=== PATIENT | male | born 1960 | race Caucasian/White ===

== ENCOUNTER → 2018-03-13 | Outpatient (CLI) | payer BC, OTHER ==
[~2018-03-13] MED LIST: IOHEXOL 350 MG/ML 100 ML (OMNIPAQUE 350) VIAL IV ONE; NS 250 ML (IVPB) BAG IV ONE
--- NOTE | 2018-03-13 13:22 | Diagnostic Imaging Report ---
PROCEDURE: CT abdomen and pelvis with contrast. TECHNIQUE: Multiple contiguous axial images were obtained through the abdomen and pelvis after administration of intravenous contrast. INDICATION: Left-sided pain. COMPARISON: There are no prior studies available for comparison. FINDINGS: There may be one or two diverticula in the sigmoid colon. There is no evidence for acute diverticulitis, however. The visualized colon is otherwise unremarkable. The appendix was identified and is not abnormally thickened. The urinary bladder is not well distended and consequently difficult to assess. There is no obvious bladder abnormality evident. The prostate gland is not enlarged. There is no pelvic mass or free fluid collection noted. The liver, spleen, pancreas, gallbladder, adrenals, kidneys, aorta, and inferior vena cava are unremarkable for an acute abnormality. The stomach is not fully distended and consequently difficult to assess. The lung bases are clear. The bone windows show no sign of a fracture. In particular, there is no evidence for a rib fracture on the left. IMPRESSION: 1. There is no evidence for an acute abnormality of the abdomen or pelvis. 2. There are a few diverticula in the sigmoid colon, but there is no sign of acute diverticulitis. 3. The bone windows show no evidence for a fracture. In particular, there is no sign of a fracture involving the left ribs. Dictated by: Dictated on workstation # [id number]
== END ==
LOC: RAD 09:44
PROVIDERS: ATTEND Family Medicine
DX: K57.30 Diverticulosis of large intestine without perforation or abscess without bleeding (principal)
CPT/HCPCS: 74177

== ENCOUNTER 2022-07-12 08:24 | Emergency (ER) | payer OTHER ==
[~2022-07-12] VITALS: Ht 182 cm; Wt 74.0 kg
[2022-07-12] MEDS ORDERED: KETOROLAC 30 MG/ML VIAL IVP STA (09:26)
[2022-07-12] MEDS ORDERED: LACTATED RINGERS 1,000 ML IV ONE (09:30)
[2022-07-12 09:39] LABS: ALBUMIN 4.3 GM/DL (3.2-4.5); POTASSIUM 3.6 MMOL/L (3.6-5.0)
[2022-07-12 09:41] LABS: TOTAL PROTEIN 7.6 GM/DL (6.4-8.2)
[2022-07-12 09:43] LABS: BILIRUBIN,TOTAL 0.5 MG/DL (0.1-1.0)
[2022-07-12 09:44] LABS: HEMOGLOBIN 16.1 g/dL (13.3-17.7); MEAN PLATELET VOLUME 9.7 fL (9.0-12.2)
--- NOTE | 2022-07-12 09:44 | ED Abdominal Pain ---
General Chief Complaint: Abdominal/GI Problems Stated Complaint: LOWER RT SIDE ABD PAIN Nursing Triage Note: RIGHT LOWER ABD PAIN OFF AND ON FOR X2 WEEKS. TODAY STARTED HAVING PAIN RIGHT LOWER BACK. Source of Information: Patient History of Present Illness Date Seen by Provider: Jul 12, 2022 Time Seen by Provider: 09:25 Initial Comments PT ARRIVES VIA POV FROM HOME C/O RLQ PAIN RADIATING TO RIGHT FLANK AREA "FOR A COUPLE OF WEEKS OR LONGER" STATES PAIN IS CONSTANT, YET HE DOES NOT HAVE PAIN NOW TOOK 600 MG OF IBUPROFEN BETWEEN MIDNIGHT AND 0400 AND IT HELPS NOTHING WORSENS PAIN NO NAUSEA/VOMITING/DIARRHEA/CONSTIPATION--HAD A NORMAL LOOSE STOOL THIS AM NO URINARY SYMPTOMS AND VOIDING A NORMAL AMOUNT, AND URINE IS NORMAL COLOR NO FEVER AT ANY TIME LAST ATE AT 1800 LAST NIGHT, NO CHANGE IN APPETITE NO HISTORY OF SIMILAR NO PRIOR ABDOMINAL SURGERIES--NO SURGERIES OF ANY KIND PT SMOKES 1 PPD, DRINKS BEER DAILY, DENIES ETOH USE. 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 PCP: NONE Allergies and Home Medications Allergies Coded Allergies: No Known Drug Allergies (Unverified , 07/12/22) Patient Home Medication List Ketorolac Tromethamine (Ketorolac Tromethamine) 10 Mg Tablet, 10 MG PO Q6H Prescribed by: ALO MANE on 07/12/22 1114 Ondansetron (Ondansetron Odt) 4 Mg Tab.rapdis, 4 MG PO Q4H Prescribed by: ALO MANE on 07/12/22 1114 Review of Systems Review of Systems Constitutional: no symptoms reported Respiratory: No Symptoms Reported Cardiovascular: No Symptoms Reported Gastrointestinal: See HPI, Abdominal Pain; Denies Constipated, Denies Diarrhea, Denies Nausea, Denies Poor Appetite, Denies Poor Fluid Intake, Denies Rectal Bleeding, Denies Vomiting Genitourinary: No Symptoms Reported Musculoskeletal: see HPI, back pain Skin: no symptoms reported Psychiatric/Neurological: No Symptoms Reported Endocrine: No Symptoms Reported Hematologic/Lymphatic: No Symptoms Reported Past Ihhfnli-Rvcyxe-Yhinnf Hx Patient Social History Tobacco Use?: Yes Smoking Status: Current Everyday Smoker Substance use?: No Alcohol Use?: Yes Alcohol type: Beer Alcohol Frequency: Daily Past Medical History Surgeries: No Respiratory: No Cardiac: Yes (REFUSED TO TAKE MEDICATION) Hypertension Neurological: No Genitourinary: No Gastrointestinal: No Musculoskeletal: No Endocrine: No HEENT: No Cancer: No Psychosocial: No Integumentary: No Blood Disorders: No Physical Exam Vital Signs Vital Signs - First Documented 07/12/22 08:37 Temp 36.8 Pulse 79 Resp 16 B/P (MAP) 201/95 (130) Pulse Ox 96 O2 Delivery Room Air Capillary Refill : Less Than 3 Seconds Height/Weight/BMI Height: '" Weight: lbs. oz. kg; 22.00 BMI Method: Progress/Results/Core Measures Results/Orders Lab Results Laboratory Tests Test 07/12/22 09:14 07/12/22 09:19 07/12/22 09:28 Range/Units Serum Alcohol < 10 <10 MG/DL White Blood Count 3.8 L 4.3-11.0 10^3/uL Red Blood Count 4.90 4.30-5.52 10^6/uL Hemoglobin 16.1 13.3-17.7 g/dL Hematocrit 46 40-54 % Mean Corpuscular Volume 94 80-99 fL Mean Corpuscular Hemoglobin 33 25-34 pg Mean Corpuscular Hemoglobin Concent 35 32-36 g/dL Red Cell Distribution Width 12.4 10.0-14.5 % Platelet Count 128 L 130-400 10^3/uL Mean Platelet Volume 9.7 9.0-12.2 fL Immature Granulocyte % (Auto) 1 % Neutrophils (%) (Auto) 70 42-75 % Lymphocytes (%) (Auto) 12 12-44 % Monocytes (%) (Auto) 16 H 0-12 % Eosinophils (%) (Auto) 1 0-10 % Basophils (%) (Auto) 1 0-10 % Neutrophils # (Auto) 2.7 1.8-7.8 10^3/uL Lymphocytes # (Auto) 0.4 L 1.0-4.0 10^3/uL Monocytes # (Auto) 0.6 0.0-1.0 10^3/uL Eosinophils # (Auto) 0.0 0.0-0.3 10^3/uL Basophils # (Auto) 0.0 0.0-0.1 10^3/uL Immature Granulocyte # (Auto) 0.0 0.0-0.1 10^3/uL Percent Immature Platelet Fraction 3.2 0.0-7.6 % Sodium Level 135 135-145 MMOL/L Potassium Level 3.6 3.6-5.0 MMOL/L Chloride Level 100 98-107 MMOL/L Carbon Dioxide Level 25 21-32 MMOL/L Anion Gap 10 5-14 MMOL/L Blood Urea Nitrogen 4 L 7-18 MG/DL Creatinine 0.85 0.60-1.30 MG/DL Estimat Glomerular Filtration Rate 99 BUN/Creatinine Ratio 5 Glucose Level 110 H 70-105 MG/DL Calcium Level 9.0 8.5-10.1 MG/DL Corrected Calcium 8.8 8.5-10.1 MG/DL Total Bilirubin 0.5 0.1-1.0 MG/DL Aspartate Amino Transf (AST/SGOT) 17 5-34 U/L Alanine Aminotransferase (ALT/SGPT) 16 0-55 U/L Alkaline Phosphatase 71 40-136 U/L Total Protein 7.6 6.4-8.2 GM/DL Albumin 4.3 3.2-4.5 GM/DL Amylase Level 38 25-125 U/L Lipase 13 8-78 U/L Urine Color YELLOW Urine Clarity CLEAR Urine pH 6.0 5-9 Urine Specific [place] 1.020 1.016-1.022 Urine Protein NEGATIVE NEGATIVE Urine Glucose (UA) NEGATIVE NEGATIVE Urine Ketones NEGATIVE NEGATIVE Urine Nitrite NEGATIVE NEGATIVE Urine Bilirubin NEGATIVE NEGATIVE Urine Urobilinogen 0.2 < = 1.0 MG/DL Urine Leukocyte Esterase NEGATIVE NEGATIVE Urine RBC (Auto) TRACE-L H NEGATIVE Urine RBC RARE /HPF Urine WBC 0-2 /HPF Urine Crystals NONE /LPF Urine Bacteria NEGATIVE /HPF Urine Casts NONE /LPF Urine Mucus NEGATIVE /LPF Urine Culture Indicated NO My Orders Orders - ALO MANE DO Ed Iv/Invasive Line Start (07/12/22 09:26) Monitor-Rhythm Ecg Trace Only (07/12/22:) Amylase (07/12/22:) Cbc With Automated Diff (07/12/22:) Comprehensive Metabolic Panel (07/12/22:) Lipase (07/12/22:) Ua Culture If Indicated (07/12/22:) Ed Iv/Invasive Line Start (2/14/23 09:26) Lactated Ringers (Lr 1000 Ml Iv Solution (07/12/22 09:30) Ketorolac Injection (Toradol Injection) (07/12/22 09:26) Alcohol (07/12/22 09:44) Ct Abd/Pelvis Wo(Kidney Stone) (07/12/22 10:11) Abdomen/Kub 1view (07/12/22 10:11) Medications Given in ED Current Medications Medications Dose Ordered Sig/Dilcia Route Start Time Stop Time Status Last Admin Dose Admin Lactated Ringer's 1,000 ml @ 0 mls/hr Q0M ONCE IV 07/12/22 09:30 07/12/22 09:31 DC 07/12/22 09:36 1,000 MLS/HR Vital Signs/I&O 07/12/22 08:37 Temp 36.8 Pulse 79 Resp 16 B/P (MAP) 201/95 (130) Pulse Ox 96 O2 Delivery Room Air Blood Pressure Mean: [address] ABDOMEN/PELVIS--PER RADIOLOGIST REPORT AT 1050 FINDINGS: The lung bases are clear. No focal liver mass is identified. There appear to be small stones within the gallbladder. No biliary ductal dilatation is seen. The pancreas and spleen are unremarkable. No adrenal mass is detected. There is a punctate nonobstructing calculus in the right kidney. No left-sided renal calculi are seen. No definite ureteral calculus or evidence of hydronephrosis is detected. There are no bladder calculi detected. The aorta is heavily calcified but nonaneurysmal. The small and large bowel loops are of normal caliber. There is no obstruction. The appendix is unremarkable. There is no ascites. The prostate is unremarkable. There are fat-containing inguinal hernias bilaterally. The bony structures are nonacute. IMPRESSION: 1. Cholelithiasis. 2. Punctate nonobstructing right renal calculus. No ureteral calculus or hydronephrosis is detected. 3. Fat-containing bilateral inguinal hernias. Reviewed: Reviewed by Me Departure Impression Primary Impression: Cholelithiasis Additional Impression: HTN (hypertension) Disposition: HOME, SELF-CARE Condition: Stable Departure-Patient Inst. Decision time for Depature: 11:10 Referrals: BLAINE LUCAS,LOCAL PHYSICIAN (PCP) Primary Care Physician Patient Instructions: Gallstones, Gallbladder Diet, High Blood Pressure (DC), DASH Diet Add. Discharge Instructions: HOME, REST CLEAR LIQUIDS--WATER, BROTH, JELLO, GATORADE BLAND DIET--NO HIGH FAT OR ACIDIC FOODS OR DRINKS FOLLOW UP WITH DR. LUCAS OR SURGEON OF CHOICE FOR FURTHER EVALUATION OF GALLBLADDER FOLLOW UP WITH TO [facility] PRIMARY CARE FOR FURTHER EVALUATION OF YOUR BLOOD PRESSURE All discharge instructions reviewed with patient and/or family. Voiced understanding. Scripts Ondansetron (Ondansetron Odt) 4 Mg Tab.rapdis 4 MG PO Q4H for Nausea/Vomiting, #10 TAB Prov: ALO MANE DO 07/12/22 Ketorolac Tromethamine (Ketorolac Tromethamine) 10 Mg Tablet 10 MG PO Q6H for Pain, #15 TAB Prov: ALO MANE DO 07/12/22 Work/School Note: Local [employer] Listing ALO MANE DO Jul 12, 2022 09:44
[2022-07-12 09:45] LABS: BILIRUBIN,URINE NEGATIVE (NEGATIVE); CLARITY,URINE CLEAR; COLOR,URINE YELLOW; GLUCOSE, URINE (UA) NEGATIVE (NEGATIVE); KETONES,URINE NEGATIVE (NEGATIVE); LEUKOCYTE ESTERASE ,URINE NEGATIVE (NEGATIVE); NITRITE,URINE NEGATIVE (NEGATIVE); PROTEIN,URINE NEGATIVE (NEGATIVE)
[2022-07-12 09:45] LABS: CREATININE SERUM 0.85 MG/DL (0.60-1.30)
[2022-07-12 09:46] LABS: BASOPHILS % (AUTO) 1 % (0-10); EOSINOPHILS % (AUTO) 1 % (0-10); HEMATOCRIT 46 % (40-54); LYMPHOCYTES # (AUTO) 0.4 10^3/uL (1.0-4.0); LYMPHOCYTES % (AUTO) 12 % (12-44); MEAN CORPUSCULAR HEMOGLOBIN 33 pg (25-34); MEAN CORPUSCULAR HGB CONC 35 g/dL (32-36); MEAN CORPUSCULAR VOLUME 94 fL (80-99); MONOCYTES # (AUTO) 0.6 10^3/uL (0.0-1.0); MONOCYTES % (AUTO) 16 % (0-12); NEUTROPHILS # (AUTO) 2.7 10^3/uL (1.8-7.8); NEUTROPHILS % (AUTO) 70 % (42-75); PLATELET COUNT 128 10^3/uL (130-400); WHITE BLOOD COUNT 3.8 10^3/uL (4.3-11.0)
[2022-07-12 10:00] LABS: BACTERIA,URINE NEGATIVE /HPF; RBC,URINE RARE /HPF; WBC,URINE 0-2 /HPF
--- NOTE | 2022-07-12 10:44 | Diagnostic Imaging Report ---
PROCEDURE: CT urinary tract, rule out kidney stone. TECHNIQUE: Multiple contiguous axial images were obtained through the abdomen and pelvis without the use of intravenous contrast. Auto Exposure Controls were utilized during the CT exam to meet ALARA standards for radiation dose reduction. INDICATION: Right-sided abdominal pain. COMPARISON: Correlation is made with the prior CT from 03/13/2018. FINDINGS: The lung bases are clear. No focal liver mass is identified. There appear to be small stones within the gallbladder. No biliary ductal dilatation is seen. The pancreas and spleen are unremarkable. No adrenal mass is detected. There is a punctate nonobstructing calculus in the right kidney. No left-sided renal calculi are seen. No definite ureteral calculus or evidence of hydronephrosis is detected. There are no bladder calculi detected. The aorta is heavily calcified but nonaneurysmal. The small and large bowel loops are of normal caliber. There is no obstruction. The appendix is unremarkable. There is no ascites. The prostate is unremarkable. There are fat-containing inguinal hernias bilaterally. The bony structures are nonacute. IMPRESSION: 1. Cholelithiasis. 2. Punctate nonobstructing right renal calculus. No ureteral calculus or hydronephrosis is detected. 3. Fat-containing bilateral inguinal hernias. Dictated by: Dictated on workstation # [id number]
[2022-07-12] MEDS ORDERED: KETO10TA PO (11:14)
[2022-07-12] MEDS ORDERED: ONDA4TAB11 PO (11:14)
[2022-07-12 11:32] VITALS: BP 174/84
--- NOTE | 2022-07-12 11:36 | Diagnostic Imaging Report ---
INDICATION: Abdominal pain. FINDINGS: The bowel gas pattern is unremarkable. No abnormal fecal loading. There are vascular calcifications extensively in the iliofemoral vessels. No suspicious calculus. Left pelvic calcifications are believed to be phleboliths. IMPRESSION: Unremarkable abdominal radiograph showing atherosclerosis but no acute appearing abnormality. Dictated by: Dictated on workstation # [id number]
== END 2022-07-12 11:32 | disposition home or self-care (01) ==
LOC: EDUNIT# 08:24 → ER 08:27
DX: K80.20 Calculus of gallbladder without cholecystitis without obstruction (principal); I10 Essential (primary) hypertension; F17.210 Nicotine dependence, cigarettes, uncomplicated; Z91.14 Patient's other noncompliance with medication regimen; Z28.310 Unvaccinated for COVID-19
CPT/HCPCS: 74018; 74176; 80053; 81000; 82150; 83690; 85025; 99283; G0480; 36415; 80320